=== PATIENT | female | born 1955 | race Caucasian/White ===

== ENCOUNTER → 2016-05-17 | Outpatient (CLI) | payer BC ==
[~2016-05-17] MED LIST: EST1 PO; EST5 PO; LEVO100T PO
--- NOTE | 2016-05-17 14:58 | DIAGNOSTIC IMAGING REPORT ---
CHEST 2 VIEWS ROUTINE CLINICAL HISTORY: Persistent cough COMPARISON STUDY: 06/14/2015 FINDINGS: The cardiac and mediastinal contours are normal. There is no evidence of focal pulmonary consolidation. There is no evidence of failure. No pleural effusions are visualized.[ There is minor left basilar atelectasis/scarring. IMPRESSION: No active disease in the chest. Electronically signed by: Jagdish Aldana M.D. 05/17/2016 2:56 PM Dictated Date/Time: 05/17/2016 2:56 PM
== END | disposition home or self-care (01) ==
LOC: C.RAD1850 14:28
PROVIDERS: ATTEND Family Medicine
DX: R05 Cough (principal)

== ENCOUNTER → 2016-06-29 | Outpatient (CLI) | payer BC ==
--- NOTE | 2016-06-30 07:55 | MAMMOGRAPHY REPORT ---
BILATERAL DIGITAL SCREENING MAMMOGRAM TOMOSYNTHESIS WITH CAD: 06/29/2016 CLINICAL HISTORY: Routine screening. Patient has no complaints. TECHNIQUE: Bilateral breast tomosynthesis in addition to standard 2D mammography was performed. Curr ent study was also evaluated with a Computer Aided Detection (CAD) system. COMPARISON: Comparison is made to exams dated: 06/17/2015 mammogram and 05/19/2015 mammogram - [facility]. BREAST COMPOSITION: The tissue of both breasts is heterogeneously dense, which may obscure small ma sses. FINDINGS: No suspicious mass, architectural distortion or cluster of microcalcifications is seen. IMPRESSION: ACR BI-RADS CATEGORY 1: NEGATIVE There is no mammographic evidence of malignancy. A 1 year screening mammogram is recommended. The p atient will receive written notification of the results. Approximately 10% of breast cancers are not detected with mammography. A negative mammographic repor t should not delay biopsy if a clinically suggestive mass is present. Evelia Hairston M.D. ay/:06/29/2016 16:03:24 Ms [employer] Developer: Janna SOTO(Olivia)(Linh), [facility] letter sent: Normal 1/2 BI-RADS Code: ACR BI-RADS Category 1: Negative
== END | disposition home or self-care (01) ==
LOC: C.MAMM 15:38
PROVIDERS: ATTEND Obstetrics & Gynecology
DX: Z12.31 Encounter for screening mammogram for malignant neoplasm of breast (principal)

== ENCOUNTER → 2017-05-17 | Outpatient (CLI) | payer BC ==
--- NOTE | 2017-05-17 16:09 | DIAGNOSTIC IMAGING REPORT ---
R HIP UNILATERAL 2 VIEWS, L HIP UNILATERAL 2 VIEWS CLINICAL HISTORY: BILATERAL HIP PAIN COMPARISON STUDY: None. FINDINGS: No fracture or dislocation within the right or left hip. The visualized pelvic bones are intact. Cartilage spaces are maintained for age. Soft tissues are unremarkable. Tiny os acetabuli adjacent to the left superolateral acetabulum. IMPRESSION: No significant abnormality within the bilateral hips. Electronically signed by: Flavio Ross M.D. 05/17/2017 4:08 PM Dictated Date/Time: 05/17/2017 4:04 PM
== END | disposition home or self-care (01) ==
LOC: C.RAD1850 15:44
PROVIDERS: ATTEND Internal Medicine
DX: M25.551 Pain in right hip (principal); M25.552 Pain in left hip; E03.9 Hypothyroidism, unspecified